=== PATIENT | male | born 1950 | race Caucasian/White ===

== ENCOUNTER 2022-02-14 09:50 | Emergency (ER) | payer MEDICARE, SELFPAY ==
--- NOTE | ~2022-02-14 | XR_ITS ---
EXAMINATION: XR ANKLE, RIGHT CLINICAL INFORMATION: Ankle pain COMPARISON: None TECHNIQUE: AP, lateral, and mortise views of the right ankle. FINDINGS: No fracture or dislocation. The ankle mortise is congruent, narrowing of the joint space along the ankle mortise with osteophyte formation. Diffuse soft tissue swelling. No ankle joint effusion. XR/XR ankle RT 2V IMPRESSION: No acute osseous abnormality. Joint space narrowing along the ankle mortise with osteophyte formation.
[2022-02-14 09:54] VITALS: BP 152/75; PULSE 72; RESP 18; TEMP 36.6; O2SAT 98; BMI 27.3
--- NOTE | 2022-02-14 12:40 | ED.EXTPRO ---
HPI - Extremity Problem General Chief complaint: Extremity Problem Stated complaint: pain R ankle no INJ Time Seen by Provider: 02/14/22 11:27 History of Present Illness HPI Narrative: Patient complains of rigt ankle pain after lifting heavy objects and moving over the last several days and woke today with severe pain with weight-bearing in the right ankle. He does have a history of surgery on that ankle for a fracture many years ago, but has had little trouble with it since, there was no fall there is no calf pain or knee pain, no numbness or weakness Related Data Previous Rx's Medication Instructions Recorded acetaminophen 500 mg tablet 1,000 mg PO TID PRN pain #30 tabs 02/14/22 naproxen 500 mg tablet (Naprosyn) 500 mg PO BID PRN pain #14 tabs 02/14/22 oxycodone 5 mg tablet 5 mg PO Q6H PRN pain #14 tabs 02/14/22 Allergies Allergy/AdvReac Type Severity Reaction Status Date / Time No Known Allergies Allergy Verified 02/14/22 12:48 Review of Systems Review of Systems: Positive for right ankle pain Negatives are no dizziness no weakness no fainting no feeling faint no headache no neck pain no chest pain no back pain no other joint pains or swelling no skin rash Yes all other systems are reviewed and are negative PMFSH Past Medical History Source: nursing notes reviewed Social History Social History Advance Directives: No Physical Exam Vital Signs: Vital Signs: Last Vital Signs Temp 98 F 02/14/22 09:54 Pulse 72 02/14/22 09:54 Resp 18 02/14/22 09:54 BP 152/75 H 02/14/22 09:54 Pulse Ox 98 02/14/22 09:54 O2 Del Method 02/14/22 09:54 BMI result Body Mass Index 27.3 General appearance is no acute distress Head is normocephalic atraumatic Neck is supple Respiratory no distress Extremities full range of motion x4 Right ankle has swelling both medial and lateral no redness no warmth there is normal range of motion in the ankle, no obvious effusion, skin is normal in appearance no redness no warmth no wound, neurovascular intact distal, there is tenderness on both sides of the ankle, it is difficult for patient to bear weight on it he can limp on it but not easily Skin no rash Course Course Course Narrative: X-ray did not show any fracture but did show significant arthritis and patient who has been moving and doing lots of weight-bearing and walking up and down stairs is informed this is likely a flare up of osteoarthritis in his right ankle and advised follow with orthopedics Discharge Plan Discharge Clinical Impression: Arthralgia of ankle, right Patient Disposition: Home, Self-Care Additional Instructions: X-ray did not show any broken bone or acute injury but did show evidence of arthritis in the ankle Heavy lifting, a lot of walking and running up and down stairs for moving could inflame arthritis and ankle There is no sign of any joint infection or any dangerous condition now Hopefully it will improve day by day and return to baseline, but a good idea as to follow with orthopedist Return any time for any worse condition or any concerns Oxycodone is a narcotic so no driving for 6 hours after taking and best plan is to use it only at night when done with activities Prescriptions: New naproxen [Naprosyn] 500 mg tablet 500 mg PO BID PRN (Reason: pain) Qty: 14 0RF acetaminophen 500 mg tablet 1,000 mg PO TID PRN (Reason: pain) Qty: 30 0RF oxycodone 5 mg tablet 5 mg PO Q6H PRN (Reason: pain) Qty: 14 0RF Rx Instructions: Partial Fill upon patient request. Referrals: Alverto Shoemaker MD [Physician] - (Right ankle osteoarthritis) Interventions: ED Discharge Assessment Last Done: 02/14/22 13:00 Discharge Date/Time: 02/14/22 13:05
== END 2022-02-14 13:05 | disposition home or self-care (01) ==
PROVIDERS: Emergency Provider Student in an Organized Health Care Education/Training Program; PCP Internal Medicine
DX: M19.071 Primary osteoarthritis, right ankle and foot (principal); M25.571 Pain in right ankle and joints of right foot
CPT/HCPCS: 73600; 99282; 99283